=== PATIENT | male | born 1990 | race Caucasian/White ===

== ENCOUNTER 2021-11-10 00:48 | Emergency (ER) | payer BC ==
[~2021-11-10] VITALS: Ht 175.3 cm; Wt 99.8 kg
--- NOTE | 2021-11-10 02:27 | NUR ---
c/o pain on lt pinkie toe after injury from a wheel of laundy basket, 5/10 on movements otherwise 3/10 at rest. vs taken awaiting for MD evaluation placed in waiting room.
[2021-11-10 02:28] VITALS: BP_SYST 133
[2021-11-10] MEDS ORDERED: IBUPROFEN 600 MG TABLET PO ONE (02:45)
--- NOTE | 2021-11-10 03:05 | NUR ---
Patient ambulatory to bed hallway
[2021-11-10] MEDS ORDERED: NAPR-686 PO (03:22)
[2021-11-10 03:46] VITALS: BP_SYST 132
--- NOTE | 2021-11-10 03:46 | NUR ---
Patient given written and verbal discharge instructions and verbalizes understanding. ER MD discussed with patient the results and treatment provided. Patient in stable condition. Rx of Naproxen given. Patient educated on pain management and to follow up with PMD. Pain Scale 2/10. Opportunity for questions provided and answered.
== END 2021-11-10 03:46 | disposition home or self-care (01) ==
LOC: SED 00:48
DX: S90.122A Contusion of left lesser toe(s) without damage to nail, initial encounter (principal); W22.8XXA Striking against or struck by other objects, initial encounter; Y93.89 Activity, other specified; Y92.89 Other specified places as the place of occurrence of the external cause; Y99.8 Other external cause status
CPT/HCPCS: 99283